=== PATIENT | male | born 1975 | race African-American/Black ===

== ENCOUNTER 2018-05-15 17:28 | Emergency (ER) | payer MEDICAID ==
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
--- NOTE | 2018-05-16 10:19 | Diagnostic Imaging Report ---
CT scan lumbar spine HISTORY: Pain Total DLP equals CTDI equals Axial sections obtained through the lumbar spine. Additional sagittal and coronal reformatted images are provided. Alignment is normal. There is suggestion of a mild (2 mm) central disc protrusion at L4-5. Minimal narrowing of this interspace. No acute abnormalities. No fractures. IMPRESSION: 1. No acute abnormalities 2. Suggestion of a mild (2 mm) central disc protrusion L4-5.
== END 2018-05-15 21:45 | disposition home or self-care (01) ==
LOC: ER 17:28
DX: M54.2 Cervicalgia (principal); M54.5 Low back pain; V49.9XXA Car occupant (driver) (passenger) injured in unspecified traffic accident, initial encounter; Y93.89 Activity, other specified; Y92.410 Unspecified street and highway as the place of occurrence of the external cause; Y99.8 Other external cause status
CPT/HCPCS: 72125-TC; 72131-TC; Z7502

== ENCOUNTER 2018-06-09 11:21 | Emergency (ER) | payer MEDICAID ==
--- NOTE | 2018-06-09 12:31 | Diagnostic Imaging Report ---
Right hand (3 views) HISTORY: Pain, trauma No acute bony abnormalities. No fractures are seen. Joint spaces appear normal. IMPRESSION: No acute abnormalities. In the presence of recent trauma and persistent symptoms, a repeat radiograph in 5-7 days may be helpful for detection of a subtle or occult fracture.
--- NOTE | 2018-06-09 12:32 | Diagnostic Imaging Report ---
Right wrist (3 views) HISTORY: Pain, trauma No acute bony abnormalities. No fractures. Joint spaces appear normal. IMPRESSION: No acute abnormalities In the presence of recent trauma and persistent symptoms, a repeat radiograph in 5-7 days may be helpful for detection of a subtle or occult fracture.
--- NOTE | 2018-06-09 15:24 | ED Physician Chart ---
ED Chief Complaint/HPI - Patient Information Date Seen:: 06/09/18 Time Seen:: 11:40 Chief Complaint:: Right Wrist Pain History of Present Illness:: onset x 10 days of sharp, MS type Right Wrist and Right Hand Pain after a twisting type injury; pt denies LOC, ALOC, AMS, H/As, neck pain, weakness, dizziness, paresthesias, vertigo, C/P, SOB, Abd. Pain, A/N/V/D/C, fever, chills , or urinary s/s; pt's last tetanus shot: < 5 years; UTD Allergies:: Allergies Allergy/AdvReac Type Severity Reaction Status Date / Time No Known Allergies Allergy Verified 05/15/18 18:01 Vitals:: Vital Signs - 8 hr 06/09/18 06/09/18 11:41 12:42 Temp 98 F 98.6 F HR 70 70 RR 16 16 BP 143/79 143/79 Historian:: Patient, Family Member Review:: Nurse's Note Reviewed, Old Chart Reviewed ED Review of Systems - Review of Systems General/Constitutional: No fever, No chills, No weight loss, No weakness, No diaphoresis, No edema, No loss of appetite Skin: No skin lesions, No rash, No bruising Head: No headache, No light-headedness Eyes: No loss of vision, No pain, No diplopia ENT: No earache, No nasal drainage, No sore throat, No tinnitus Neck: No neck pain, No swelling, No thyromegaly, No stiffness, No mass noted Cardio Vascular: No chest pain, No palpitations, No PND, No orthopnea, No edema Pulmonary: No SOB, No cough, No sputum, No wheezing GI: No nausea, No vomiting, No diarrhea, No pain, No melena, No hematochezia, No constipation, No hematemesis G/U: No dysuria, No frequency, No hematuria, No nacturia Musculoskeletal: No bone or joint pain, No back pain, Muscle pain Endocrine: No polyuria, No polydipsia Psychiatric: No prior psych history, No depression, No anxiety, No suicidal ideation, No homicidal ideation, No auditory hallucination, No visual hallucination Hematopoietic: No bruising, No lymphadenopathy Allergic/Immuno: No urticaria, No angioedema Neurological: No syncope, No focal symptoms, No weakness, No paresthesia, No headache, No seizure, No dizziness, No confusion, No vertigo ED Past Medical History - Past Medical History Obtainable: Yes Past Medical History: No significant medical hx Family History: None Social History: Non Smoker, No Alcohol, No Drug Use, Surgical History: None Psychiatricy History: None Medication: Reviewed Family Medical History - Family Member Maternal Grandmother History Unknown: Yes Ethnicity: Non- Living Status: Still Living Hx Family Coronary Artery Disease: Yes ED Physical Exam - Physical Examination General/Constitutional: Awake, Well-developed, well-nourished, Alert, No distress, GCS 15, Non-toxic appearing, Ambulatory Head: Atraumatic Eyes: Lids, conjuctiva normal, PERRL, EOMI Skin: Nl inspection, No rash, No skin lesions, No ecchymosis, Well hydrated, No lymphadenopathy ENMT: External ears, nose nl, TM canals nl, Nasal exam nl, Lips, teeth, gums nl , Oropharynx nl, Tonsils nl Neck: Nontender, Full ROM w/o pain, No JVD, No nuchal rigidity, No bruit, No mass, No stridor Other Neck comments:: supple; no meningeal signs; no cervical tenderness; no bruits Respiratory: Nl effort/Exclusion, Clear to Auscultation, No Wheeze/Rhonchi/Rales Cardio Vascular: RRR, No murmur, gallop, rubs, NL S1 S2, Carotid/Femoral/Distal pulses equal bilaterally GI: No tenderness/rebounding/guarding, No organomegaly, No hernia, Normal BS's, Nondistended, No mass/bruits, No McBurney tenderness, Rectum exam nl : No CVA tenderness Extremities: No tenderness or effusion, Full ROM, normal strength in all extremities, No edema, Normal digits & nails Other Extremities comments:: Right Wrist and Right Hand tenderness at the medial dorsal region with no loss of ROMs; no cellulitis; no FBs; no ligament instability; good motor, tendon, and sensory functions; good NV functions; no septic joints; no ligament laxity Neuro/Psych: Alert/oriented, DTR's symmetric, Normal sensory exam, Normal motor strength, Judgement/insight normal, Mood normal, Normal gait, No focal deficits Other Neuro/Psych comments:: no focal signs Misc: Normal back, No paraspinal tenderness ED Labs/Radiology/EKG Results - Radiology Results Comments:: ? Hairline Fx 1st MC Bone; otherwise no obvious Fx; no dislocations; NAD ED Septic Shock - . Is Septic Shock (SBP<90, OR Lactate>4 mmol\L) present?: No - <6hrs of presentation: Vital Signs: Vital Signs - 8 hr 06/09/18 06/09/18 11:41 12:42 Temp 98 F 98.6 F HR 70 70 RR 16 16 BP 143/79 143/79 ED Reassessment (Disposition) - Reassessment Reassessment:: pt is asymptomatic upon discharge Reassessment Condition:: Improved - Diagnosis Diagnosis:: Dx: Right Hand Occult Fracture; Right Hand Sprains and Strains; Right Wrist Sprains and Strains; Right Hand and Right Wrist Injury - Aftercare/Follow up Instructions Aftercare/Follow-Up Instructions:: Counseled pt regarding lab results/diagnosis & need follow up, Refer to Discharge Instructions, Counseled pt & family regarding lab results/diagnosis & need follow up Medication Prescribed:: Rx: Motrin 400mg po tid prn pain - Patient Disposition Discharge/Transfer:: Home Condition at Disposition:: Stable, Improved (RTER prn if existing s/s reoccur and/or get worse and/or any other new s/s occur; X-Rays Instructions; ACIs given for all above Dx; Refer to Hand Specialist/Orthopedist/Outdoor Adventure Instructor MICAH; F/ U with PMD in one day or prn; RTER prn if concerned)
== END 2018-06-09 12:30 | disposition home or self-care (01) ==
LOC: ER 11:21
DX: S62.91XA Unspecified fracture of right hand, initial encounter for closed fracture (principal); S63.591A Other specified sprain of right wrist, initial encounter; S66.811A Strain of other specified muscles, fascia and tendons at wrist and hand level, right hand, initial encounter; X50.1XXA Overexertion from prolonged static or awkward postures, initial encounter; Y93.89 Activity, other specified; Y92.89 Other specified places as the place of occurrence of the external cause; Y99.8 Other external cause status
CPT/HCPCS: 99283; 96372; 73110; 73130; J1885; Z7502